=== PATIENT | female | born 1990 | race Caucasian/White ===

== ENCOUNTER 2019-07-29 08:00 | Day surgery (SDC) | payer OTHER ==
[2019-07-28 14:17] VITALS: BMI 31.1
[~2019-07-29] VITALS: Ht 160 cm; Wt 81.1 kg
[2019-07-29] VITALS (13 sets, daily range): BP systolic 104–142; BP diastolic 59–86; PULSE 80–103; RESP 16–25; Ht 160 cm; Wt 81.1 kg
[~2019-07-29 08:00] MED LIST: ETHI1TAB24 PO; IBUP-1542 PO; LEVO100T82 PO; LIOT25TA11 PO; ORA20G7 BUCCAL; SLSL1C50 TOP
[2019-07-29] MEDS ORDERED: ONDANSETRON 4 MG INJ IV PRN (12:00)
[2019-07-29] MEDS ORDERED: HYDROmorphONE 1 MG/5 ML IV SYRINGE IV PRN ×2 (12:00)
[2019-07-29] MEDS ORDERED: MIDAZOLAM 1 MG/ML 2 ML INJ ONE (12:14)
[2019-07-29] MEDS ORDERED: DESFLURANE 15 MIN ONE (12:14)
[2019-07-29] MEDS ORDERED: ROCURONIUM 50 MG INJ ONE (12:14)
[2019-07-29] MEDS ORDERED: LIDOCAINE 2% (SDV) 5 ML INJ ONE (12:14)
[2019-07-29] MEDS ORDERED: PROPOFOL 200 MG INJ ONE (12:14)
[2019-07-29] MEDS ORDERED: SUGAMMADEX SODIUM 200 MG/2 ML VIAL IV ONE (12:55)
[2019-07-29] MEDS ORDERED: DEXAMETHASONE 4 MG/ML 5 ML INJ ONE (12:55)
[2019-07-29] MEDS ORDERED: ONDANSETRON 4 MG INJ ONE (12:55)
== END 2019-07-29 15:31 | disposition home or self-care (01) ==
LOC: SDS 08:00
PROVIDERS: ATTEND Otolaryngology Otolaryngology/Facial Plastic Surgery
DX: J35.01 Chronic tonsillitis (principal)
CPT/HCPCS: 42826; 84703; 88304; J1100; J1170; J2250; J2405; J3010; Z7512; Z7610

== ENCOUNTER 2019-08-02 15:23 | Emergency (ER) | payer OTHER ==
[~2019-08-02] VITALS: Ht 160 cm; Wt 75.6 kg
[2019-08-02 15:43] VITALS: Ht 160 cm; Wt 75.6 kg
[2019-08-02] MEDS ORDERED: KETOROLAC 15 MG INJ IV STA (16:03)
[2019-08-02] MEDS ORDERED: SOD CHLORIDE 0.9% 1,000 ML IV STA (16:03)
[2019-08-02] MEDS ORDERED: ONDANSETRON 4 MG INJ IV STA (16:03)
[2019-08-02 17:46] VITALS: BP 125/66; PULSE 90; RESP 18
== END 2019-08-02 17:48 | disposition home or self-care (01) ==
LOC: FTE 15:23
DX: G89.18 Other acute postprocedural pain (principal)
CPT/HCPCS: 80048; 81025; 85025; J1885; J2405; J7030; 36415; 96374; 96375